=== PATIENT | male | born 1965 | race Caucasian/White ===

== ENCOUNTER → 2024-02-13 07:10 | Outpatient (REF) | payer BC, SELFPAY | LOC: RAD 07:10 | PROVIDERS: ATTENDING PHYSICIAN Family Medicine | DX: R10.9 Unspecified abdominal pain (principal) | CPT/HCPCS: 76770 ==

== ENCOUNTER → 2024-05-08 10:56 | Outpatient (REF) | payer BC, SELFPAY | LOC: HWRAD 10:56 | PROVIDERS: ATTENDING PHYSICIAN Physician Assistant | DX: R22.0 Localized swelling, mass and lump, head (principal) | CPT/HCPCS: 76604 ==

== ENCOUNTER → 2024-05-26 12:50 | Outpatient (REF) | payer BC, SELFPAY | LOC: HWRAD 12:50 | PROVIDERS: ATTENDING PHYSICIAN Physician Assistant; FAMILY PHYSICIAN Family Medicine | DX: R22.2 Localized swelling, mass and lump, trunk (principal) | CPT/HCPCS: 71250 ==

== ENCOUNTER → 2024-11-21 08:25 | Outpatient (REF) | payer BC, SELFPAY | LOC: RAD 08:25 | PROVIDERS: ATTENDING PHYSICIAN Physician Assistant; FAMILY PHYSICIAN Family Medicine | DX: K76.89 Other specified diseases of liver (principal) | CPT/HCPCS: 76700 ==

== ENCOUNTER 2025-01-05 06:21 | Day surgery (SDC) | payer BC, SELFPAY | END 2025-01-05 14:12 | disposition home or self-care (01) | LOC: GI 06:21 | PROVIDERS: ATTENDING PHYSICIAN Internal Medicine Gastroenterology | DX: Z12.11 Encounter for screening for malignant neoplasm of colon (principal); K57.30 Diverticulosis of large intestine without perforation or abscess without bleeding; K64.8 Other hemorrhoids; Z86.0100 Personal history of colon polyps, unspecified | CPT/HCPCS: 45380; 88305 ==